=== PATIENT | male | born 1980 | race Two or more races ===

== ENCOUNTER 2018-01-21 12:06 | Emergency (ER) | payer MEDICAID ==
[~2018-01-21] VITALS: Ht 162.6 cm; Wt 81.6 kg
[2018-01-21 12:30] VITALS: BP 127/74
[2018-01-21] MEDS ORDERED: KETOROLAC TROMETH 60MG/2ML VIAL IM ONE (12:30)
[2018-01-21] MEDS ORDERED: HYDROcodone-ACET 10/325MG TAB PO ONE (12:30)
== END 2018-01-21 13:39 | disposition home or self-care (01) ==
LOC: ER 12:06
DX: S52.532A Colles' fracture of left radius, initial encounter for closed fracture (principal); F17.210 Nicotine dependence, cigarettes, uncomplicated; W11.XXXA Fall on and from ladder, initial encounter; Y93.89 Activity, other specified; Y92.89 Other specified places as the place of occurrence of the external cause; Y99.8 Other external cause status
CPT/HCPCS: 29125; 73110; 96372; 99284; J1885